=== PATIENT | female | born 1945 | race Caucasian/White ===

== ENCOUNTER → 2016-06-04 09:52 | Outpatient (CLI) | payer MEDICARE, OTHER ==
[2016-06-04 12:41] LABS: BASOPHILS 0 % (0.0-2.0); EOSINOPHILS 0 % (0-7); HEMOGLOBIN 9.6 g/dL (12-16); IMMATURE GRANULOCYTES 0.3 % (0-5); LYMPHOCYTES 10.3 % (15-50); MCH 29.4 pg (26.0-34.0); MCV 91.7 fL (80.0-100.0); MEAN PLATELET VOLUME 9.8 fL (7.4-10.4); MONOCYTES 4.9 % (2-11); NEUTROPHILS 84.5 % (40-80); RBC 3.27 10x6/uL (4.00-5.40); RDW 18.5 % (11.5-14.5); WBC 7.5 10x3/uL (4.8-10.8)
[2016-06-04 12:48] LABS: PLATELET COUNT 319 10x3/uL (130-400)
== END | disposition home or self-care (01) ==
LOC: D.LAB 09:52
PROVIDERS: Obstetrics & Gynecology Gynecologic Oncology
DX: C56.9 Malignant neoplasm of unspecified ovary (principal)

== ENCOUNTER → 2016-06-11 10:10 | Outpatient (CLI) | payer MEDICARE, OTHER ==
[2016-06-11 11:12] LABS: BASOPHILS 0.2 % (0.0-2.0); EOSINOPHILS 0 % (0-7); HEMATOCRIT 28.2 % (36.0-48.0); HEMOGLOBIN 9.3 g/dL (12-16); IMMATURE GRANULOCYTES 0.2 % (0-5); LYMPHOCYTES 45.2 % (15-50); MCH 29.7 pg (26.0-34.0); MCV 90.1 fL (80.0-100.0); MEAN PLATELET VOLUME 9.6 fL (7.4-10.4); MONOCYTES 5.4 % (2-11); PLATELET COUNT 295 10x3/uL (130-400); RBC 3.13 10x6/uL (4.00-5.40); RDW 18.2 % (11.5-14.5); WBC 5.6 10x3/uL (4.8-10.8)
== END | disposition home or self-care (01) ==
LOC: D.LAB 10:00
PROVIDERS: Obstetrics & Gynecology Gynecologic Oncology
DX: C56.9 Malignant neoplasm of unspecified ovary (principal)

== ENCOUNTER → 2016-06-18 10:22 | Outpatient (CLI) | payer MEDICARE, OTHER ==
[2016-06-18 11:40] LABS: BASOPHILS 0 % (0.0-2.0); EOSINOPHILS 0.2 % (0-7); HEMATOCRIT 25.8 % (36.0-48.0); HEMOGLOBIN 8.4 g/dL (12-16); IMMATURE GRANULOCYTES 0.2 % (0-5); MCH 29.9 pg (26.0-34.0); MCHC 32.6 g/dL (31.0-37.0); MCV 91.8 fL (80.0-100.0); MEAN PLATELET VOLUME 9.1 fL (7.4-10.4); MONOCYTES 6.8 % (2-11); NEUTROPHILS 54.8 % (40-80); RBC 2.81 10x6/uL (4.00-5.40); RDW 19.1 % (11.5-14.5)
[2016-06-18 11:48] LABS: PLATELET COUNT 73 10x3/uL (130-400)
[2016-06-18 12:00] LABS: ALBUMIN 3.3 g/dL (3.4-5.0); ANION GAP 9.4 mmol/L (8-16); BILIRUBIN - INDIRECT 0.21 mg/dL (0.00-1.00); BILIRUBIN - TOTAL 0.25 mg/dL (0.2-1.3); CARBON DIOXIDE 31.2 mmol/L (21.0-32.0); CREATININE - SERUM 0.8 mg/dL (0.6-1.3); MAGNESIUM - SERUM 1.4 mg/dL (1.8-2.4); PHOSPHOROUS 3.5 mg/dL (2.5-4.9); POTASSIUM - SERUM 3.6 mmol/L (3.5-5.1); PROTEIN - SERUM 6.3 g/dL (6.4-8.2)
[2016-06-18 12:02] LABS: BILIRUBIN - DIRECT 0.04 mg/dL (0.00-0.30)
[2016-06-18 12:13] LABS: PLATELET ESTIMATE DECREASED
== END | disposition home or self-care (01) ==
LOC: D.LAB 10:00
PROVIDERS: Obstetrics & Gynecology Gynecologic Oncology
DX: C56.9 Malignant neoplasm of unspecified ovary (principal)

== ENCOUNTER → 2016-06-25 09:41 | Outpatient (CLI) | payer MEDICARE, OTHER ==
[2016-06-25 10:04] LABS: BASOPHILS 0.2 % (0.0-2.0); EOSINOPHILS 0 % (0-7); HEMATOCRIT 26.4 % (36.0-48.0); HEMOGLOBIN 8.6 g/dL (12-16); IMMATURE GRANULOCYTES 0.5 % (0-5); LYMPHOCYTES 7.7 % (15-50); MCH 30.1 pg (26.0-34.0); MCHC 32.6 g/dL (31.0-37.0); MCV 92.3 fL (80.0-100.0); MEAN PLATELET VOLUME 9.8 fL (7.4-10.4); MONOCYTES 4.3 % (2-11); NEUTROPHILS 87.3 % (40-80); PLATELET COUNT 201 10x3/uL (130-400); RBC 2.86 10x6/uL (4.00-5.40); RDW 20.5 % (11.5-14.5); WBC 11.5 10x3/uL (4.8-10.8)
== END | disposition home or self-care (01) ==
LOC: D.LAB 09:41
PROVIDERS: Obstetrics & Gynecology Gynecologic Oncology
DX: C56.9 Malignant neoplasm of unspecified ovary (principal)

== ENCOUNTER → 2016-07-02 10:36 | Outpatient (CLI) | payer MEDICARE, OTHER ==
[2016-07-02 11:36] LABS: HEMOGLOBIN 10.2 g/dL (12-16); LYMPHOCYTES 39.2 % (15-50); MCV 91.2 fL (80.0-100.0); MEAN PLATELET VOLUME 9.4 fL (7.4-10.4); NEUTROPHILS 55.9 % (40-80); PLATELET COUNT 220 10x3/uL (130-400); RBC 3.29 10x6/uL (4.00-5.40); RDW 18.2 % (11.5-14.5); WBC 5.5 10x3/uL (4.8-10.8)
== END | disposition home or self-care (01) ==
LOC: D.LAB 10:00
PROVIDERS: Obstetrics & Gynecology Gynecologic Oncology
DX: C56.9 Malignant neoplasm of unspecified ovary (principal)

== ENCOUNTER → 2016-07-09 10:01 | Outpatient (CLI) | payer MEDICARE, OTHER ==
[2016-07-09 10:53] LABS: BASOPHILS 0 % (0.0-2.0); EOSINOPHILS 0.2 % (0-7); HEMATOCRIT 29.5 % (36.0-48.0); HEMOGLOBIN 9.6 g/dL (12-16); IMMATURE GRANULOCYTES 0.4 % (0-5); LYMPHOCYTES 41.7 % (15-50); MCH 31.2 pg (26.0-34.0); MCHC 32.5 g/dL (31.0-37.0); MCV 95.8 fL (80.0-100.0); MEAN PLATELET VOLUME 8.9 fL (7.4-10.4); MONOCYTES 5.9 % (2-11); NEUTROPHILS 51.8 % (40-80); RBC 3.08 10x6/uL (4.00-5.40); RDW 19.1 % (11.5-14.5); WBC 5.1 10x3/uL (4.8-10.8)
[2016-07-09 10:56] LABS: PLATELET COUNT 74 10x3/uL (130-400)
[2016-07-09 11:19] LABS: ALBUMIN 3.4 g/dL (3.4-5.0); ANION GAP 10.9 mmol/L (8-16); BILIRUBIN - DIRECT 0.06 mg/dL (0.00-0.30); BILIRUBIN - INDIRECT 0.2 mg/dL (0.00-1.00); BILIRUBIN - TOTAL 0.26 mg/dL (0.2-1.3); CREATININE - SERUM 0.7 mg/dL (0.6-1.3); MAGNESIUM - SERUM 1.5 mg/dL (1.8-2.4); PHOSPHOROUS 3.3 mg/dL (2.5-4.9); POTASSIUM - SERUM 3.9 mmol/L (3.5-5.1); PROTEIN - SERUM 6.3 g/dL (6.4-8.2)
[2016-07-09 11:43] LABS: PLATELET ESTIMATE DECREASED
== END | disposition home or self-care (01) ==
LOC: D.LAB 10:00
PROVIDERS: Obstetrics & Gynecology Gynecologic Oncology
DX: C56.9 Malignant neoplasm of unspecified ovary (principal)

== ENCOUNTER → 2016-07-16 11:12 | Outpatient (CLI) | payer MEDICARE, OTHER ==
[2016-07-16 11:41] LABS: BASOPHILS 0.1 % (0.0-2.0); EOSINOPHILS 0.1 % (0-7); HEMATOCRIT 31.1 % (36.0-48.0); HEMOGLOBIN 10.2 g/dL (12-16); IMMATURE GRANULOCYTES 0.5 % (0-5); LYMPHOCYTES 16.1 % (15-50); MCH 31.8 pg (26.0-34.0); MCHC 32.8 g/dL (31.0-37.0); MCV 96.9 fL (80.0-100.0); MONOCYTES 5.2 % (2-11); PLATELET COUNT 176 10x3/uL (130-400); RBC 3.21 10x6/uL (4.00-5.40); RDW 19.8 % (11.5-14.5)
== END | disposition home or self-care (01) ==
LOC: D.LAB 09:15
PROVIDERS: Obstetrics & Gynecology Gynecologic Oncology
DX: C56.9 Malignant neoplasm of unspecified ovary (principal)

== ENCOUNTER → 2016-07-23 11:49 | Outpatient (CLI) | payer MEDICARE, OTHER ==
[2016-07-23 12:20] LABS: BASOPHILS 0.1 % (0.0-2.0); EOSINOPHILS 0.1 % (0-7); HEMATOCRIT 26.5 % (36.0-48.0); HEMOGLOBIN 8.9 g/dL (12-16); IMMATURE GRANULOCYTES 0.6 % (0-5); LYMPHOCYTES 15.1 % (15-50); MCHC 33.6 g/dL (31.0-37.0); MCV 95.3 fL (80.0-100.0); MEAN PLATELET VOLUME 8.8 fL (7.4-10.4); MONOCYTES 18.1 % (2-11); PLATELET COUNT 146 10x3/uL (130-400); RBC 2.78 10x6/uL (4.00-5.40); WBC 10.9 10x3/uL (4.8-10.8)
== END | disposition home or self-care (01) ==
LOC: D.LAB 09:15
PROVIDERS: Obstetrics & Gynecology Gynecologic Oncology
DX: C56.9 Malignant neoplasm of unspecified ovary (principal)

== ENCOUNTER → 2016-07-30 10:18 | Outpatient (CLI) | payer MEDICARE, OTHER ==
[2016-07-30 11:28] LABS: BASOPHILS 0.3 % (0.0-2.0); EOSINOPHILS 0 % (0-7); HEMATOCRIT 24.6 % (36.0-48.0); HEMOGLOBIN 8.1 g/dL (12-16); IMMATURE GRANULOCYTES 0.1 % (0-5); LYMPHOCYTES 27.6 % (15-50); MCH 32.1 pg (26.0-34.0); MCHC 32.9 g/dL (31.0-37.0); MCV 97.6 fL (80.0-100.0); MEAN PLATELET VOLUME 10.2 fL (7.4-10.4); MONOCYTES 5.3 % (2-11); NEUTROPHILS 66.7 % (40-80); RBC 2.52 10x6/uL (4.00-5.40); RDW 19.9 % (11.5-14.5); WBC 6.8 10x3/uL (4.8-10.8)
[2016-07-30 11:43] LABS: ALBUMIN 3.2 g/dL (3.4-5.0); ANION GAP 12.2 mmol/L (8-16); BILIRUBIN - DIRECT 0.07 mg/dL (0.00-0.30); BILIRUBIN - INDIRECT 0.24 mg/dL (0.00-1.00); BILIRUBIN - TOTAL 0.31 mg/dL (0.2-1.3); CARBON DIOXIDE 29.3 mmol/L (21.0-32.0); CREATININE - SERUM 0.3 mg/dL (0.6-1.3); MAGNESIUM - SERUM 1.4 mg/dL (1.8-2.4); PHOSPHOROUS 3.9 mg/dL (2.5-4.9); POTASSIUM - SERUM 3.5 mmol/L (3.5-5.1); PROTEIN - SERUM 6.5 g/dL (6.4-8.2)
[2016-07-30 12:27] LABS: PLATELET ESTIMATE DECREASED
[2016-07-30 12:57] LABS: PLATELET COUNT 30 10x3/uL (130-400)
== END | disposition home or self-care (01) ==
LOC: D.LAB 09:15
PROVIDERS: Obstetrics & Gynecology Gynecologic Oncology
DX: C56.9 Malignant neoplasm of unspecified ovary (principal)